=== PATIENT | male | born 1930 | race Caucasian/White ===

== ENCOUNTER → 2016-08-24 | Outpatient (CLI) | payer OTHER | LOC: FIMAGING 09:43 | PROVIDERS: ATTEND Internal Medicine Hematology & Oncology | DX: Z13.820 Encounter for screening for osteoporosis (principal); M85.80 Other specified disorders of bone density and structure, unspecified site; C90.00 Multiple myeloma not having achieved remission; Z96.641 Presence of right artificial hip joint ==

== ENCOUNTER → 2016-11-13 | Outpatient (CLI) | payer OTHER | LOC: FIMAGING 08:49 | PROVIDERS: ATTEND Internal Medicine Hematology & Oncology | DX: R05 Cough (principal); R53.83 Other fatigue; R91.8 Other nonspecific abnormal finding of lung field; Z85.79 Personal history of other malignant neoplasms of lymphoid, hematopoietic and related tissues ==

== ENCOUNTER 2018-04-18 15:18 | Inpatient (IN) | payer OTHER ==
--- NOTE | 2018-04-18 16:00 | EDPHY ---
H & P Stated Complaint: low SPO2, cough Time Seen by Provider: 04/18/18 15:59 HPI/ROS: HPI CHIEF COMPLAINT: Shortness of breath, cough. HISTORY OF PRESENT ILLNESS: 88-year-old male, presents emergency room shortness of breath. Reports cough progressively worse over the last 48 hr with duval sputum. Denies fever. Does complain of fatigue no chest pain. Went to his assistant project manager's office today noted to have an O2 sat of 77%. Referred to the ER. He arrives to the emergency room on 4 L nasal cannula. His O2 sat was 77% on room air. He is slightly tachypneic. He has crackles throughout his lung bilaterally. Past Medical History: Significant past medical history for multiple myeloma, osteoarthritis, AFib. On Coumadin. Past Surgical History: Hip surgery. Social History: Denies drugs alcohol tobacco. Family History: Noncontributory. ROS REVIEW OF SYSTEMS: 10 Systems were reviewed and negative with the exception of the elements mentioned in the history of present illness. Exam Constitutional nontoxic triage nursing summary reviewed, vital signs reviewed, awake/alert. Hypoxic 77%. Eyes normal conjunctivae and sclera, EOMI, PERRLA. HENT normal inspection, atraumatic, moist mucus membranes, no epistaxis, neck supple/ no meningismus, no raccoon eyes. Respiratory crackles bilaterally. Decreased breath sounds bilaterally. Cardiovascular rate normal, regular rhythm, no murmur, no edema, distal pulses normal. Gastrointestinal soft, non-tender, no rebound, no guarding, normal bowel sounds, no distension, no pulsatile mass. Genitourinary no CVA tenderness. Musculoskeletal no midline vertebral tenderness, full range of motion, no calf swelling, no tenderness of extremities, no meningismus, good pulses, neurovascularly intact. Skin pink, warm, & dry, no rash, skin atraumatic. Neurologic awake, alert and oriented x 3, AAOx3, moves all 4 extremities equally, motor intact, sensory intact, CN II-XII intact, normal cerebellar, normal vision, normal speech. Psychiatric normal mood/affect. Heme/Lymph/Immune no lymphadenopathy. Differential Diagnosis: Includes but is not limited to in a particular order pneumonia, viral syndrome, URI, CHF, ACS, PE Medical Decision Making: Plan for this patient IV establishment full quality assurance monitor chassis, chest x-ray, EKG, blood cultures, lactic, Re-evaluation: Given this patient's hypoxia, and clinical presentation the patient need to be admitted most likely for pneumonia. EKG interpretation by me on record in [employer] system. Impression time of EKG 1621, AFib rate of 84, similar morphology pattern as dated 07/17/2014. I do not appreciate acute ischemia. ED x-ray chest one view this shows bilateral lower lobe pneumonia. Worse on left than right. Given this patient's hypoxia, cough with duval productive sputum blood cultures have been obtained. IV Levaquin has been ordered. The patient need to be admitted to the hospital for hypoxia pneumonia. 1644: Plan for hospital admission for pneumonia bilateral lower lobe. IV Levaquin has been ordered. Blood work pending. Patient hemodynamically stable. Spoke with the hospitalist service Dr. Ugalde accepts. Source: Patient - Personal History Current Tetanus/Diphtheria Vaccine: Yes Current Tetanus Diphtheria and Acellular Pertussis (TDAP): Yes - Medical/Surgical History Hx Asthma: No Hx Chronic Respiratory Disease: No Hx Diabetes: No Hx Cardiac Disease: Yes Hx Renal Disease: No Hx Cirrhosis: No Hx Alcoholism: No Hx HIV/AIDS: No Hx Splenectomy or Spleen Trauma: No Other PMH: afib. Multiple Myloma. Hip Replacement. Osteoarthritis - Social History Smoking Status: Never smoked Constitutional: Initial Vital Signs Temperature (C) 38 C 04/18/18 15:32 Heart Rate 92 04/18/18 15:32 Respiratory Rate 20 04/18/18 15:32 Blood Pressure 111/63 04/18/18 15:32 O2 Sat (%) 90 L 04/18/18 15:32 O2 Delivery Mode Nasal Cannula O2 (L/minute) 3 Allergies/Adverse Reactions: mercury (elemental) [Mercury (Elemental)] Allergy (Verified 04/18/18 15:31) Sbbttsa-Ybi-Ubf Reductase Inhibitor Allergy (Verified 04/18/18 15:31) Other-Enter Comments Home Medications: Medication Instructions Recorded C,E,Zinc,Copper 11/Dshkf4r/Lut 1 each PO DAILY 01/03/16 [Ocuvite Adult 50 Plus Softgel] Lenalidomide [Revlimid] 5 mg PO DAILY 01/03/16 Warfarin Sodium [Coumadin] 3 mg PO MOWEFR 01/03/16 Herbals/Supplements -Info Only 1 ea PO DAILY 04/18/18 Multivitamins [Multivitamin (*)] 1 each PO DAILY 04/18/18 Warfarin Sodium [Coumadin] 6 mg PO SUTUTHSA 04/18/18 Medical Decision Making - Data Points Laboratory Results: Laboratory Results 04/18/18 16:19 04/18/18 16:19 Microbiology Results: MICROBIOLOGY 04/18/18 16:38 Nasal, Sinus - Anaerobic Tube/Swab Respiratory Panel (PCR) - Final Human Rhinovirus/Enterovirus Medications Given: Miscellaneous Medication (Lenalidomide [Revlimid]) 5 mg PO DAILY CORA Stop: 10/16/18 08:59 Last Admin: 04/19/18 09:58 Dose: 5 mg Discontinued Medications Levofloxacin/Dextrose (Levaquin 750 Mg (Premix)) 150 mls @ 100 mls/hr IV EDNOW ONE PRN Reason: Protocol Stop: 04/18/18 17:44 Last Admin: 04/18/18 16:23 Dose: 150 mls Sodium Chloride (Ns) 1,000 mls @ 0 mls/hr IV ONCE ONE PRN Reason: Wide Open Stop: 04/18/18 17:00 Last Admin: 04/18/18 17:23 Dose: 1,000 mls Point of Care Test Results: Chemistry 04/18/18 16:25 POC Troponin I 0.05 ng/mL ng/mL (0.00-0.08) Departure - Departure Disposition: [facility] Inpatient Acute Clinical Impression: Hypoxia Pneumonia Qualifiers: Pneumonia type: due to unspecified organism Laterality: bilateral Lung location : lower lobe of lung Qualified Code(s): J18.1 - Lobar pneumonia, unspecified organism Condition: Fair
[2018-04-18 16:37] LABS: PLATELET COUNT 97 10^3/uL (150-400)
[2018-04-18] MEDS ORDERED: ONDANSETRON 4 MG/2 ML VIAL IVP PRN (16:48)
[2018-04-18] MEDS ORDERED: ONDANSETRON DISINTEGRATING 4 MG TAB PO PRN (16:48)
[2018-04-18] MEDS ORDERED: ACETAMINOPHEN 325 MG TAB PO PRN (16:48)
[2018-04-18] MEDS ORDERED: NS 1,000 ML IV ONE (16:59)
[2018-04-18 17:01] LABS: INR 3.72 (0.83-1.16); PROTIME(PATIENT) 36.5 SEC (12.0-15.0)
--- NOTE | 2018-04-18 17:39 | PDGENHP ---
History and Physical - Chief Complaint SOB, lightheadedness - History of Present Illness 88 y/o male with history of atrial fibrillation, multiple myeloma, and osteoarthritis presents with decreased oxygen sats at 77% on RA. The patient reports feeling well on Sunday and visiting the [employer] in [place]. Afterwards leading to Sunday, he progressively became short of breath, lightheaded, and fatigued. His O2 sats at home was 84%. He denies N/V, fevers, chills, chest pains. He thought it was heart related so he f/u'ed with his occupational rehabilitation aide where CXR was performed and told he has pneumonia and go to ED. He has not been around anyone who was sick. His productive cough he has had for a couple of months, producing duval thick sputum and has been treating it with cough drops and Mucinex. Past Medical/Surgical History 1. Multiple Myeloma 2. Atrial Fibrillation (on Warfarin) 3. Osteoarthritis 4. MOHS Face basal cell carcinoma History Information - Allergies/Home Medication List Allergies/Adverse Reactions: mercury (elemental) [Mercury (Elemental)] Allergy (Verified 04/18/18 15:31) Pexjquc-Lwr-Xoz Reductase Inhibitor Allergy (Verified 04/18/18 15:31) Other-Enter Comments Home Medications: Ocuvite Softgel 01/03/16 [Last Taken Unknown] Revlimid 01/03/16 [Last Taken Unknown] Warfarin Sodium 01/03/16 [Last Taken Unknown] I have personally reviewed and updated: family history, medical history, social history, surgical history Past Medical History: See HPI List - Surgical History Additional surgical history: See HPI list - Family History Positive for: non-pertinent - Social History Smoking Status: Never smoked Alcohol Use: None Drug Use: None Additional social history: Son-in-law at bedside with pt. Pt lives alone at home with his dog. POA is his son, Joshua, who lives in [place]. Cell # is: [phone] Review of Systems Review of Systems: ROS: 10pt was reviewed & negative except for what was stated in HPI & below Constitutional: Reports: weakness, other (A couple of months with a productive cough) EENMT: Reports: no symptoms Cardiac: Reports: lightheadedness Respiratory: Reports: cough, shortness of breath Gastrointestinal: Reports: no symptoms Genitourinary: Reports: no symptoms Muscolosketal: Reports: no symptoms Skin: Reports: no symptoms Neurological: Reports: headache, tingling (Was told years ago he had carpal tunnel syndrome) Hematologic/Lymphatic: Reports: no symptoms Immunologic/Allergy: Reports: other (See allergy list) Physical Exam Physical Exam: Lab data and imaging reviewed Lactic Acid: 1.6 First troponin: 0.05 INR: 3.72 Respiratory Panel: Pending CMP: Pending CXR: Dense left lower lobe with air bronchospasms, chronic atherosclerotic calcification of the aorta. Possible cardiomegaly without failure EKG: ventricular 84 bmp, chronic a-fib. Temp Pulse Resp BP Pulse Ox 38 C 72 22 H 134/79 H 95 04/18/18 15:32 04/18/18 16:25 04/18/18 16:25 04/18/18 16:25 04/18/18 16:33 Constitutional: no apparent distress, appears nourished, not in pain Eyes: PERRL, anicteric sclera, EOMI Ears, Nose, Mouth, Throat: moist mucous membranes, hearing normal, ears appear normal, no oral mucosal ulcers Cardiovascular: no murmur, rub, or gallop, irregularly irregular, edema (Mild non-pitting pedal edema) Peripheral Pulses: 2+: dorsalis-pedis (R) (Radial 2+), dorsalis-pedis (L) ( Radial 2+) Respiratory: rhonchi (Bilateral lower lobes expiratory rhonchi; diminished inspiratory sounds) Gastrointestinal: normoactive bowel sounds, soft, non-tender abdomen, no palpable masses Genitourinary: no bladder fullness, no bladder tenderness Skin: warm, normal color, no rashes or abrasions, no fluctuance, no induration, No mottled Musculoskeletal: full muscle strength, no muscle tenderness, normal joint ROM, no joint effusions Neurologic: AAOx3, sensation intact bilaterally, CN II-XII Intact Psychiatric: interacting appropriately, not anxious, not encephalopathic, thought process linear Lymph, Heme, Immunologic: no cervical LAD, no supraclavicular LAD Lab Data & Imaging Review 04/18/18 16:19 04/18/18 16:19 WBC 4.67 10^3/uL (3.80-9.50) 04/18/18 16:19 RBC 3.70 10^6/uL (4.40-6.38) L 04/18/18 16:19 Hgb 12.4 g/dL (13.7-17.5) L 04/18/18 16:19 Hct 38.2 % (40.0-51.0) L 04/18/18 16:19 MCV 103.2 fL (81.5-99.8) H 04/18/18 16:19 MCH 33.5 pg (27.9-34.1) 04/18/18 16:19 MCHC 32.5 g/dL (32.4-36.7) 04/18/18 16:19 RDW 14.8 % (11.5-15.2) 04/18/18 16:19 Plt Count 97 10^3/uL (150-400) L 04/18/18 16:19 MPV 11.4 fL (8.7-11.7) 04/18/18 16:19 PT 36.5 SEC (12.0-15.0) H 04/18/18 16:19 INR 3.72 (0.83-1.16) H 04/18/18 16:19 APTT 63.0 SEC (23.0-38.0) H 04/18/18 16:19 VBG Lactic Acid 1.6 mmol/L (0.7-2.1) 04/18/18 16:15 POC Troponin I 0.05 ng/mL (0.00-0.08) 04/18/18 16:25 Nasal Influenza A PCR Cancelled 04/18/18 16:38 Nasal Influenza B PCR Cancelled 04/18/18 16:38 Assessment & Plan Plan: 88 y/o male with history of atrial fibrillation, multiple myeloma, and osteoarthritis presents with decreased oxygen sats at 77% on RA and for the past four days, has progressively become more fatigued, short of breath, and lightheaded to the point where he thought he would pass out. Suspected pneumonia to left lower lobe. 1. Acute hypoxic respiratory failure: differential diagnosis are CAP, PE, CHF, pleural effusion. PE unlikely consider he is on chronic warfarin and INR is 3.72. Dense left lower consolidation -suspect pneumonia: low-grade fever (38 degree C) and hypoxic. Close to meeting at least 2 SIRS criteria. Respirations 22, white count 4.67, lactate 1.6. -Cont Tele -Cycle one more trop -Blood culture pending -Respiratory panel pending -Sputum pending -IV antibiotics once BMP results (renal function) -IV fluids once BMP results (renal function) 2. Thrombocytopenia: Currently undergoing chemo treatment with Revlimid for multiple myeloma. Continue this medication as directed and monitor plts closely. 3. A-Fib: Chronic and on warfarin. Currently stable and has a loop recorder for monitoring. He reports taking his Coumadin today. -Hold coumadin for tonight -Pharmacy to dose, INR above therapeutic range (3.72) Diet: Regular VTE ppx: SCDs, Warfarin Code: DNR Dispo: Admit to inpatient
--- NOTE | 2018-04-18 23:01 | CPEKG ---
Test Reason : OPEN Blood Pressure : / mmHG Vent. Rate : 084 BPM Atrial Rate : 149 BPM P-R Int : 062 ms QRS Dur : 103 ms QT Int : 381 ms P-R-T Axes : 000 000 013 degrees QTc Int : 451 ms Atrial fibrillation Borderline repol abnormality, diffuse leads Confirmed by Ciro Yoo ([id number]) on 04/18/2018 11:01:14 PM Referred By: Confirmed By:Ciro Yoo
--- NOTE | 2018-04-18 23:31 | HOSPPROG ---
Hospitalist Progress Note Assessment/Plan: Pt seen and examined, chart reviewed. Discussed case with Aleja Quintana [employer]. See her H&P, agree with assessment and plan. AHRF - appears viral Indeterminate trop - query strain with respiratory illness, trend MM - low plts 2/2 tx, follow Objective: Vital Signs Temp Pulse Resp BP Pulse Ox 37.2 C 78 24 H 104/54 L 94 04/18/18 22:51 04/18/18 22:51 04/18/18 22:51 04/18/18 22:51 04/18/18 22:51 04/17/18 04/18/18 04/19/18 05:59 05:59 05:59 Intake Total 200 Output Total 126 Balance 74 PT 36.5 SEC (12.0-15.0) H 04/18/18 16:19 INR 3.72 (0.83-1.16) H 04/18/18 16:19 ICD10 Worksheet Patient Problems: Problems Problem Status Onset Hypoxia Acute Pneumonia Acute Syncope and collapse Acute Syncope due to orthostatic hypotension Acute
[2018-04-19 06:15] LABS: INR 4.9 (0.83-1.16); PROTIME(PATIENT) 45.1 SEC (12.0-15.0)
--- NOTE | 2018-04-19 08:33 | HOSPPROG ---
Hospitalist Progress Note Assessment/Plan: DIAGNOSES: * acute hypoxemic respiratory failure * acute bilateral pneumonia, human rhino virus identified on respiratory swab, bacterial infection not ruled out * immune suppression due to myeloma and treatment * excessive anticoagulation on Coumadin * acute thrombocytopenia, suspect due to viral illness * gradually progressive exertional incapacity over 6 months, uncertain etiology * abnormal EKG with lateral and posterior ST segment changes, indeterminate troponins; elevation of BNP * history of AFib His acute illness is obviously an infectious respiratory illness. However he does have a more chronic progressive exertional incapacity, and now has EKG change in high BNP. He does have a history of valvular heart disease. It is possible he is having worsening underlying structural heart disease or could even be developing ischemic disease as causes of his chronic symptoms PLANS: * Continue empiric antibiotics at this time * Respiratory care * Follow INR closely off anticoagulant at this time, watch for bleeding complications; resume Coumadin when INR therapeutic which may take a while due to use of antibiotic; follow platelets as well as his bleeding risk will increase more if they fall further * Repeat EKG * Review his most recent stress test and echocardiogram for timing and results, consider repeat studies at this time depending on what I find * DVT prophylaxis is with his Coumadin SUBJECTIVE: Patient feels about the same as yesterday although the oxygen is making him less lightheaded He does mention to me that he has had for the past 6 months a gradual decrease in his exertional capacity, where previously he would walk 5 miles at 3 mph and now is down to walking at best 3 miles at 1.7 mph, as he monitors this routinely. There has been no specific discomfort or dyspnea that he notices causing this and its etiology has not been assessed OBJECTIVE Vitals reviewed: Afebrile, remains tachypneic on 4 L oxygen, borderline low blood pressures Exam: alert oriented skin warm dry color ok resps not labored lungs obvious egophony and rales at the left base, milder changes at the very inferior right base heart regular abd soft nondistended nontender, bowel sounds present limbs warm, no edema iv site ok Laboratory data: INR increased to 4.9 today Platelets decreased to 80,000 today Repeat troponin remains indeterminate I reviewed his chest x-ray images which show obvious pneumonia infiltrates I reviewed his EKG from yesterday, and there is ST segment down sloping depression in lateral V leads and ST segment elevation in posterior leads. Objective: Vital Signs Temp Pulse Resp BP Pulse Ox 36.4 C 77 28 H 95/60 L 93 04/19/18 07:18 04/19/18 07:18 04/19/18 07:18 04/19/18 07:18 04/19/18 07:18 Microbiology 04/19/18 06:26 - Final Sputum, Expectorated Sputum Culture - Final Laboratory Results 04/19/18 04:11 04/18/18 04/19/18 04/20/18 06:59 06:59 06:59 Intake Total 200 Output Total 301 200 Balance -101 -200 PT 45.1 SEC (12.0-15.0) H 04/19/18 04:11 INR 4.90 (0.83-1.16) H 04/19/18 04:11 - Time Spent With Patient Time Spent with Patient: greater than 35 minutes Time Spent with Patient: Greater than 35 minutes spent on this patients care, greater than 50% of time spent counseling, educating, and coordinating care regarding the above mentioned plan. ICD10 Worksheet Patient Problems: Problems Problem Status Onset Syncope and collapse Acute Syncope due to orthostatic hypotension Acute Pneumonia Acute Hypoxia Acute
[2018-04-19] MEDS: Lenalidomide [Revlimid] 5 MG PO SCH (09:58)
--- NOTE | 2018-04-19 12:16 | PDMN ---
Medical Necessity Medical necessity: Pt meets IP criteria per & MCG M-282; est los >2 mn for eval/tx of acute bilateral pneumonia w/acute hypoxemic respiratory failure (O2 77% on RA); admit for further monitoring, IV abx & respiratory supportive care; comorbid advanced age, AFIB on AC, immunosuppression r/t multiple myeloma & tx, thrombocytopenia; per IP order 04/18/18
--- NOTE | 2018-04-19 12:34 | ASMTCMCOM ---
CM Note CM Note Notes: Reviewed chart, pt admitted to hospital for pnuemonia. He had an abnorma EKG so MD would like a cardiology consult. Pt lives alone with his dog, no therapies ordered. Anticipate he will dc home when medically stable. CM available for any changes. DC Plan: Independent Date Signed: 04/19/2018 12:33 PM Electronically Signed By:Janice Lagunas RN
--- NOTE | 2018-04-19 16:58 | ECHO ---
[email or web address] [address] [address] Main: [phone] Fax: [email or web address] Echocardiogram Name: ZACKARY HDEZ MR#: [id number] Study Date: 04/19/2018 Study Time: 09:26 AM Date of : 1930 Age: 88 year(s) Height: 241.3 cm (95 in.) Weight: 27.22 kg (60 lb.) BSA: 1.56 m2 Gender: Male Examination: Echo Indication: Shortness of breath Image Quality: Adequate Contrast: Requested by: Chaparrita Quintana BP: 95 mmHg/60 mmHg Heart Rate: Rhythm: Indication: Shortness of breath Procedure Staff [employer] Repairer: Roberta Mccracken RDCS Reading Physician: Dario Gomez MD Requesting Provider: Conclusions: Normal size left ventricle. Low normal left ventricular systolic function. EF is 51 %. There is subtle hypokinesis of the apex (2 chamber). Moderately dilated right ventricle. Mildly reduced RV function. The left atrium is severely dilated. The right atrium is severely dilated. The aortic valve is tri-leaflet. Moderate aortic cusp calcification is present. Moderate aortic valve regurgitation is present. Mild calcific aortic valve stenosis. Mean aortic valve gradient 10. The pulmonary artery pressure is moderately increased. Right ventricular systolic pressure measures 50mmHg. Severe Tricuspid Regurgitation . Mild pulmonic valve regurgitation is noted. The IVC is normal sized. Measurements: Chambers Valvular Assessment AV/MV Valvular Assessment TV/PV Normal Normal Normal Name Value Range Name Value Range Name Value Range Ao Priya (2D): 3.1 cm (1.4 cm-2.6 AV Vmax: 2.20 m/s (1 m/s-1.7 TR Vmax: 3.35 mm/s ( - ) cm) m/s) TR PGmax: 45 mmHg ( - ) IVSd (2D): 1.0 cm (0.6 cm-1.1 AV maxP mmHg ( - ) syst. PAP: 50 mmHg ( - ) cm) AV meanP mmHg ( - ) PV Vmax: 0.91 m/s (0.6 m/s-0.9 LVDd (2D): 4.3 cm (4.2 cm-5.9 ALYSA (VTI): 1.4 cm ( - ) m/s) cm) MV E Vmax: 1.11 m/s ( - ) PV PGmax: 3 mmHg ( - ) Patient: ZACKARY HDEZ Study Date: 04/19/2018 Page 1 of 3 09:26 AM LVDs (2D): 3.2 cm (2.1 cm-4 MV PHT: 0.059 s ( - ) cm) MVA (PHT): 3.7 s ( - ) LVPWd (2D): 1.0 cm (0.6 cm-1 cm) LVOTd 1.9 cm 1.9 cm mm LVEF (BP): 51 % (>=55 %) RVDd(2D): 4.6 cm (1.9 cm-3.8 cmmm) Continued Measurements: Chambers Valvular Assessment TV/PV Name Value Name Value LADs: 4.5 cm CVP (est.): 5 mmHg LADs Lon.4 cm LA Area: 24.1 cm2 LA Volume: 82 ml LA Volume Index: 52.6 ml/m2 RA Area: 30.1 cm2 Additional Vessels Name Value Ao Ascendin.8 cm Inferior Vena Cava: 1.6 cm Findings: Left Ventricle: Normal size left ventricle. No LV hypertrophy. Low normal left ventricular systolic function. EF is 51 %. Unable to assess diastolic dysfunction. There is subtle hypokinesis of the apex (2 chamber). Right Ventricle: Moderately dilated right ventricle. Mildly reduced RV function. Left Atrium: The left atrium is severely dilated. Right Atrium: The right atrium is severely dilated. Mitral Valve: The mitral valve is normal in appearance and function. Mild mitral valve leaflet calcification is present. Mild mitral annular calcification. Mild mitral valve regurgitation is present. No mitral stenosis is present. Aortic Valve: The aortic valve is tri-leaflet. Moderate aortic cusp calcification is present. Moderate aortic valve regurgitation is present. Mild calcific aortic valve stenosis. Mean aortic valve gradient 10. Tricuspid Valve: The tricuspid valve is normal in appearance and function. The pulmonary artery pressure is moderately increased. Right ventricular systolic pressure measures 50mmHg. Severe Tricuspid Regurgitation . Pulmonic Valve: The pulmonic valve is normal in appearance and function. Mild pulmonic valve regurgitation is noted. Aorta: The aorta is normal. Normal size aortic root measuring 3.1 cm. Normal size ascending aorta measuring 3.8 cm. IVC: The IVC is normal sized. Pericardium: No pericardial effusion. No echocardiographic evidence of hemodynamic compromise. No pleural effusion. Patient: ZACKARY HDEZ Study Date: 04/19/2018 Page 2 of 3 09:26 AM (No Signature Object) Patient: ZACKARY HDEZ Study Date: 04/19/2018 Page 3 of 3 09:26 AM [id number]
[2018-04-20 06:38] LABS: INR 3.61 (0.83-1.16); PROTIME(PATIENT) 35.7 SEC (12.0-15.0)
--- NOTE | 2018-04-20 07:29 | CPEKG ---
Test Reason : OPEN Blood Pressure : / mmHG Vent. Rate : 083 BPM Atrial Rate : 079 BPM P-R Int : 206 ms QRS Dur : 098 ms QT Int : 383 ms P-R-T Axes : 000 080 014 degrees QTc Int : 450 ms Atrial fibrillation Nonspecific ST T wave abnormality diffuse leads Confirmed by Chuck Rios ([id number]) on 04/20/2018 7:29:04 AM Referred By: Confirmed By:Chuck Rios
[2018-04-20] MEDS: Lenalidomide [Revlimid] 5 MG PO SCH (08:44)
--- NOTE | 2018-04-20 17:42 | HOSPPROG ---
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 if has MAIRA or unrecognized lung dz; chronic coumadin makes PE less likely but not untenable * echo findings do not suggest valvular or LV disease as cause, yet has severe biatrial enlargement despite good LV fxn * gait instability and high fall risk (uses walker at home) * indeterminate troponins, do not feel he is having any acute coronary syndrome * chronic AFib rate controlled and anticoagulated on Coumadin His acute illness is an infectious respiratory illness and should resolve with time His 6 mos of progressive decline in exertional capacity requires further w/u. His myeloma makes use of iodine contrast unattractive so angiography and CT angio should be very carefully considered, and reviewed with Dr Whittington and or a it solutions sales consultant. He has previous abnormal stress MPI study so repeating that would not likely be useful. I have reviewed this issues with dr Almodovar of cardiology. He feels that stress echo may be useful, and this could be done as outpt PLANS: * Continue empiric antibiotics at this time * Follow INR closely off anticoagulant at this time, watch for bleeding complications; resume Coumadin when INR therapeutic * Discharge to home with home O2 likely 04/21 if his balance/strength is good for use of home O2 and walker including stairs (son will be staying w him for around 2 weeks) * he should see either Dr Cobian or Scooby in next 2 weeks to consider stress echo or other eval of heart * should be referred to [facility], and his assessment should include both PFT and referral for sleep study for MAIRA, and consider whether testing for PE appropriate/how to do that w his myeloma * DVT prophylaxis is with his Coumadin SUBJECTIVE: Patient feels about the same as yesterday although the oxygen is making him less lightheaded Has been doing some ambulating in the hallway today and, eating well, no nausea vomiting no chills OBJECTIVE Vitals reviewed: Afebrile, remains tachypneic on 4 L oxygen, borderline low blood pressures Exam: alert oriented skin warm dry color ok resps not labored lungs obvious egophony and rales at the left base, milder changes at the very inferior right base heart regular abd soft nondistended nontender, bowel sounds present limbs warm, no edema iv site ok Laboratory data: INR remains elevated at 3.6 Echocardiogram shows evidence of PHTN 50, dilated RV, severe TR, moderate aortic regurgitation, mild mitral regurgitation, severe biatrial enlargement, good LV fxn Objective: Vital Signs Temp Pulse Resp BP Pulse Ox 36.3 C 75 20 101/52 L 90 L 04/20/18 16:00 04/20/18 16:00 04/20/18 16:00 04/20/18 16:00 04/20/18 16:00 Laboratory Results 04/19/18 04:11 04/19/18 04/20/18 04/21/18 06:59 06:59 06:59 Intake Total 200 500 Output Total 301 400 Balance -101 100 PT 35.7 SEC (12.0-15.0) H 04/20/18 04:40 INR 3.61 (0.83-1.16) H 04/20/18 04:40 - Time Spent With Patient Time Spent with Patient: greater than 35 minutes Time Spent with Patient: Greater than 35 minutes spent on this patients care, greater than 50% of time spent counseling, educating, and coordinating care regarding the above mentioned plan. ICD10 Worksheet Patient Problems: Problems Problem Status Onset Hypoxia Acute Pneumonia Acute Syncope and collapse Acute Syncope due to orthostatic hypotension Acute
[2018-04-21 05:28] LABS: INR 2.56 (0.83-1.16); PROTIME(PATIENT) 27.5 SEC (12.0-15.0)
[2018-04-21] MEDS: Lenalidomide [Revlimid] 5 MG PO SCH (07:38)
[2018-04-21 08:43] VITALS: BP 94/56
--- NOTE | 2018-04-21 09:19 | HOSPPROG ---
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 if has MAIRA or unrecognized lung dz; chronic coumadin makes PE less likely but not untenable * echo findings do not suggest valvular or LV disease as cause, yet has severe biatrial enlargement despite good LV fxn * gait instability and high fall risk (uses walker at home) * indeterminate troponins, do not feel he is having any acute coronary syndrome * chronic AFib rate controlled and anticoagulated on Coumadin His acute illness is an infectious respiratory illness and should resolve with time His 6 mos of progressive decline in exertional capacity requires further w/u. His myeloma makes use of iodine contrast unattractive so angiography and CT angio should be very carefully considered, and reviewed with Dr Whittington and or a appraiser. He has previous abnormal stress MPI study so repeating that would not likely be useful. I have reviewed this issues with dr Almodovar of cardiology. He feels that stress echo may be useful, and this could be done as outpt PLANS: * Continue empiric antibiotics at this time * Follow INR closely off anticoagulant at this time, watch for bleeding complications; resume Coumadin when INR therapeutic * Discharge to home with home O2 likely 04/21 if his balance/strength is good for use of home O2 and walker including stairs (son will be staying w him for around 2 weeks) * he should see either Dr Cobian or Scooby in next 2 weeks to consider stress echo or other eval of heart * should be referred to [facility], and his assessment should include both PFT and referral for sleep study for MAIRA, and consider whether testing for PE appropriate/how to do that w his myeloma * resume warfarin today * * home today > 30 minutes on dc Subjective: anxious for dc. stillw 02 requirement Objective: Vital Signs Temp Pulse Resp BP Pulse Ox 36.4 C 65 22 H 94/56 L 94 04/21/18 08:43 11/11/18 08:43 04/21/18 08:43 04/21/18 08:43 04/21/18 08:43 Laboratory Results 04/19/18 04:11 04/20/18 04/21/18 04/22/18 05:59 05:59 05:59 Intake Total 500 Output Total 400 500 Balance 100 -500 PT 27.5 SEC (12.0-15.0) H 04/21/18 04:15 INR 2.56 (0.83-1.16) H 04/21/18 04:15 - Physical Exam Constitutional: no apparent distress, appears nourished Eyes: PERRL, anicteric sclera Ears, Nose, Mouth, Throat: moist mucous membranes, hearing normal Cardiovascular: regular rate and rhythym, no murmur, rub, or gallop Respiratory: other (bibasilar crackles, no wheeze, good air movement) Gastrointestinal: normoactive bowel sounds, soft, non-tender abdomen Genitourinary: no bladder fullness, No francois in urethra Skin: warm, normal color Musculoskeletal: full muscle strength ICD10 Worksheet Patient Problems: Problems Problem Status Onset Hypoxia Acute Pneumonia Acute Syncope and collapse Acute Syncope due to orthostatic hypotension Acute
--- NOTE | 2018-04-21 09:21 | PDHOMEO2F ---
Home Oxygen Face to Face Home Orders: I certify that a physician or a nurse practitioner or physician's assistant laboratory director has had a [id number] encounter with this patient on the date of this order due to the diagnosis listed, which relates to the primary reason the patient requires home oxygen. Alternative treatments have been tried, or considered, and deemed ineffective. It is anticipated that supplemental oxygen will result in improvement with treatment. Home oxygen qualifying diagnosis: viral pneumonia SpO2 on room air (%): 84 Frequency of home oxygen needed: continuous Home oxygen liters per minute: 4 Home oxygen delivery device: mask, nasal cannula Concentrator: No E-tanks for mobility and back up: Yes If ordering portable O2, is the patient mobile in the home?: Yes I certify that, based on these findings, the home oxygen is medically necessary for this patient for the following length of time. Length of time home oxygen needed: 1 month
--- NOTE | 2018-04-21 10:19 | ASMTLACE ---
LACE Length of stay for Answers: 3 days current admission Acuity / Level of Answers: Yes Care: Did the patient have an inpatient admission? Comorbidities - select Answers: Other Notes: AFib; Multiple myeloma all that apply # of Emergency department Answers: 1-2 visits in the last 6 months Score: 8 Date Signed: 04/21/2018 10:18 AM Electronically Signed By:Janice Lagunas RN
--- NOTE | 2018-04-21 10:27 | ASMTCMCOM ---
CM Note CM Note Notes: Pt's son requested help with engaging someone to have goals of care discussion with him and his father. RN recommended outpt palliative consult. Referral sent to [facility] Plan: Allan thomas/ [facility] out[facility] Date Signed: 04/21/2018 10:26 AM Electronically Signed By:Janice Lagunas RN
--- NOTE | 2018-04-21 10:28 | PDIAF ---
- Diagnosis Diagnosis: viral pneumonia Code Status: Do Not Resuscitate - Medication Management Discharge Medications: electronically signed and located in the Home Medication List. - Orders Services needed: Home Care, Physical Therapy Home Care Face to Face: I certify that this patient was under my care and that I had the required [id number] encounter meeting the encounter requirements on the discharge day. My findings support the fact that the patient is homebound as defined in Home Care Face to Face Continued: CMS Chapter 7 Medicare Benefits Manual 30.1.1 , The condition of the patient is such that there exists a normal inability to leave home and consequently, leaving home would require a considerable and taxing effort. Isolation Type: Chemotherapy Isolation, Droplet Isolation - Follow Up Care Current Providers and Referrals: Andrew Cobian MD [Primary Care Provider] - As per Instructions
--- NOTE | 2018-04-21 10:59 | PDHOMEO2F ---
Home Oxygen Face to Face Home Orders: I certify that a physician or a nurse practitioner or physician's human resources benefits assistant has had a pitg-zi-mano encounter with this patient on the date of this order due to the diagnosis listed, which relates to the primary reason the patient requires home oxygen. Alternative treatments have been tried, or considered, and deemed ineffective. It is anticipated that supplemental oxygen will result in improvement with treatment. Home oxygen qualifying diagnosis: viral pneumonia SpO2 on room air (%): 84 Frequency of home oxygen needed: continuous Home oxygen liters per minute: 4 Home oxygen delivery device: nasal cannula Concentrator: Yes E-tanks for mobility and back up: Yes If ordering portable O2, is the patient mobile in the home?: Yes I certify that, based on these findings, the home oxygen is medically necessary for this patient for the following length of time. Length of time home oxygen needed: 1 month
[2018-04-21] MEDS ORDERED: PNEUMOC 13-VAL CONJ-DIP CRM/PF 0.5 ML SYR (PREVNAR 13) IM ONE (11:03)
--- NOTE | 2018-04-21 12:38 | ASMTCMCOM ---
CM Note CM Note Notes: Spoke w/physical therapist, she is recommending homecare and pt is amenable. List given and they would like referral sent to [facility], and they can accept. DC Plan: Home care/ [facility] + [facility] Palliative Date Signed: 04/21/2018 12:37 PM Electronically Signed By:Janice Lagunas RN
--- NOTE | 2018-04-21 15:06 | ASMTDCNOTE ---
Case Management Discharge Discharge Order Complete? Answers: Yes Patient to Obtain Answers: via Family Medications Transportation Arranged Answers: Family/Friends Faxed Final Orders Answers: Yes Family Notified Answers: Yes Discharge Comments Notes: D/w MD, final orders faxed. Received call from [facility], in fact they cannot accept pt's ins. [facility] and pt was [facility]. Date Signed: 04/21/2018 03:05 PM Electronically Signed By:Janice Lagunas RN
--- NOTE | 2018-04-21 15:11 | PDIAF ---
- Diagnosis Diagnosis: viral pneumonia Code Status: Do Not Resuscitate - Medication Management Discharge Medications: electronically signed and located in the Home Medication List. - Orders Services needed: Home Care, Registered Nurse, Physical Therapy Home Care Face to Face: I certify that this patient was under my care and that I had the required [id number] encounter meeting the encounter requirements on the discharge day. My findings support the fact that the patient is homebound as defined in Home Care Face to Face Continued: CMS Chapter 7 Medicare Benefits Manual 30.1.1 , The condition of the patient is such that there exists a normal inability to leave home and consequently, leaving home would require a considerable and taxing effort. Isolation Type: Chemotherapy Isolation, Droplet Isolation - Follow Up Care Current Providers and Referrals: Andrew Cobian MD [Primary Care Provider] - As per Instructions
== END 2018-04-21 13:20 | disposition home health service (06) | DRG 193 ==
LOC: F3E 17:39
PROVIDERS: ADMIT Hospitalist; ATTEND Hospitalist
DX: J12.89 Other viral pneumonia (principal); J96.01 Acute respiratory failure with hypoxia; C90.00 Multiple myeloma not having achieved remission; D69.6 Thrombocytopenia, unspecified; I48.2 Chronic atrial fibrillation; Z79.01 Long term (current) use of anticoagulants
CPT/HCPCS: 84484-PO; 93005-PO; 96365; 97116-GP; 97162-GP; G8978-GP-CK; G8979-GP-CI; J1956

== ENCOUNTER → 2018-04-18 | Outpatient (CLI) | payer OTHER | LOC: BHLMT 14:30 | PROVIDERS: ATTEND Internal Medicine Cardiovascular Disease | DX: I48.91 Unspecified atrial fibrillation (principal); I27.20 Pulmonary hypertension, unspecified; I25.10 Atherosclerotic heart disease of native coronary artery without angina pectoris; R06.09 Other forms of dyspnea | CPT/HCPCS: 93005-PO ==

== ENCOUNTER 2018-09-04 07:52 | Day surgery (SDC) | payer OTHER ==
[2018-09-04] MEDS ORDERED: DIAZEPAM 5 MG TAB PO ONE (07:55)
[2018-09-04] MEDS ORDERED: BACITRACIN IRRIGATION/NS 50,000 UNITS/1,000 ML BTL IRR ONE (07:55)
[2018-09-04] MEDS ORDERED: diphenhydrAMINE 25 MG CAP PO ONE (07:55)
[2018-09-04] MEDS ORDERED: NS 1,000 ML IV ONE (07:55)
[2018-09-04] MEDS ORDERED: ceFAZolin 2 GM/DEXTROSE 100 ML IV ONE (07:55)
--- NOTE | 2018-09-04 08:24 | PDHPUP ---
History & Physical Update H&P update statement: This history and physical update is based on an assessment of the patient which was completed after admission or registration (within 24 hours), but prior to the surgery/procedure. H&P update: H&P reviewed & patient examined, no change in patient's condition since H&P completed
--- NOTE | 2018-09-04 08:25 | PDPROPOC ---
Sedation Plan of Care Sedation Plan of Care: vital signs stable, mental status noted, patient educated of risks, benefits, alternatives, patient can tolerate sedation ASA Classification: ASA 2 Planned drugs: fentanyl, midazolam Mallampati Score: Class 1 Mallampati Reference Image: Patient passed 3-3-2 rule?: Yes
[2018-09-04 08:31] LABS: PLATELET COUNT 151 10^3/uL (150-400)
[2018-09-04 08:53] LABS: INR 1.08 (0.83-1.16); PROTIME(PATIENT) 13.6 SEC (12.0-15.0)
[2018-09-04] MEDS ORDERED: MIDAZOLAM 2 MG/2 ML VIAL ONE (09:25)
[2018-09-04] MEDS ORDERED: IOPAMIDOL (ISOVUE-300) 50 ML VIAL ONE (09:25)
[2018-09-04] MEDS ORDERED: fentaNYL 100 MCG/2 ML INJ ONE (09:25)
[2018-09-04] MEDS ORDERED: LIDOCAINE 1% 300 MG/30 ML SDV ONE (09:25)
[2018-09-04] MEDS ORDERED: LIDO/EPI 1% **for epidural** 30 ML SDV ONE (09:26)
[2018-09-04] MEDS ORDERED: BUPIVACAINE 0.5% 30 ML SDV ONE (09:26)
[2018-09-04] MEDS ORDERED: TEARS/DEXTRAN 70/HYPROMELLOSE 15 ML OPHT.BTL EACHEYE PRN (10:33)
--- NOTE | 2018-09-04 10:37 | PDCTREPORT ---
Cardiothoracic Procedure Rpt Cardiothoracic Procedure Report: Procedure: Implantation of a single-chamber permanent pacemaker, removal of implanted loop recorder. Indications: Recurrent syncope with documented pauses. After obtaining informed consent patient brought to cardiac catheterization lab in the fasting state. Left subclavian fossa was sterilely prepped and draped. Subclavian venogram was performed. Using a 10 blade an incision was made below the clavicle. Using combination of sharp and blunt dissection pacemaker pocket was created. Bacitracin soaked sponge was placed in the pocket. Using 18 gauge percutaneous needle subclavian vein on the left was entered. Guidewire advanced into the right heart. Using a 7 Welsh safety sheath lead was placed in the RV apex. Sheath was torn away. Appropriate sensitivities and thresholds were confirmed. The lead was secured to the fascia using 0 Ethibond x2. Bacitracin soaked sponge was removed. The generator was delivered to the field and attached to the lead. Set screws were tightened per industry standards. The entire system was coiled into the pocket. The loop recorder site was anesthetized with 2% xylocaine. Stab wound was made. The loop recorder was removed using blunt dissection. The loop recorder site was closed with a staple. Pacemaker pocket was closed using a three-layer closure. Pressure dressings applied the patient is taken to recovery for continued care. Chest x-ray pending. Conclusions: Successful implantation of a single-chamber permanent pacemaker Successful removal of loop recorder. Device: Edora 8 [id number] SN [id number] Ventricular lead: Solia [id number] sn [id number] Right ventricular sensing was 10 mV. Impedance was 697 Ohms. Capture was at 0.6 volts with a pulse with a 0.4 milliseconds. Patient Problems: Problems Problem Status Onset Chronic Disease Mgmt/Transitional Care Acute Hypoxia Acute Pneumonia Acute Syncope and collapse Acute Syncope due to orthostatic hypotension Acute
[2018-09-04] MEDS ORDERED: NON-FORMULARY NEW DRUG (Warfarin Sodium [Coumadin] 6 MG) PO SCH (10:45)
[2018-09-05] MEDS ORDERED: VITAMIN B COMPLEX 1 EA CAP/TAB PO SCH (09:00)
[2018-09-05] MEDS ORDERED: [UNRECOGNIZED DRUG - MIXTURE] PO SCH (09:00)
[2018-09-05] MEDS ORDERED: CYANO/VITAMIN B12 1000 MCG TAB PO SCH (09:00)
[2018-09-05] MEDS ORDERED: MULTIVITAMINS 1 EACH TAB PO SCH (09:00)
[2018-09-05] MEDS ORDERED: DOCUSATE SODIUM 100 MG CAP PO SCH (09:00)
[2018-09-05] MEDS ORDERED: LENALIDOMIDE 5 MG PO SCH (09:00)
[2018-09-05] MEDS ORDERED: CALCIUM CARBONATE 500 MG CHEWABLE TAB PO SCH (09:00)
--- NOTE | 2018-09-05 10:29 | CPEKG ---
Test Reason : OPEN Blood Pressure : / mmHG Vent. Rate : 077 BPM Atrial Rate : 000 BPM P-R Int : 071 ms QRS Dur : 091 ms QT Int : 406 ms P-R-T Axes : 000 089 000 degrees QTc Int : 460 ms Atrial fibrillation Borderline right axis deviation Borderline T abnormalities, inferior leads Confirmed by Peewee Petersen ([id number]) on 09/05/2018 10:28:45 AM Referred By: CARLO BOOTHE Confirmed By:Peewee Petersen
--- NOTE | 2018-09-05 11:18 | CPEKG ---
Test Reason : OPEN Blood Pressure : / mmHG Vent. Rate : 070 BPM Atrial Rate : 092 BPM P-R Int : 259 ms QRS Dur : 136 ms QT Int : 441 ms P-R-T Axes : 000 -75 099 degrees QTc Int : 476 ms Afib/flutter and ventricular-paced rhythm V pacing has replaced atrial fibrillation noted on prior Confirmed by Peewee Petersen ([id number]) on 09/05/2018 11:17:43 AM Referred By: CARLO BOOTHE Confirmed By:Peewee Petersen
[2018-09-06] MEDS ORDERED: WARFARIN SODIUM 3 MG PO SCH (10:33)
== END 2018-09-04 17:41 | disposition home or self-care (01) ==
LOC: FCATH 07:52 → F2W 11:07 → UNDOADMOB 11:07 → FCATH 17:41
PROVIDERS: ATTEND Internal Medicine Interventional Cardiology
PROC: 0JH604Z Insertion of Pacemaker, Single Chamber into Chest Subcutaneous Tissue and Fascia, Open Approach (ICD-10-PCS; principal; 2018-09-04)
PROC: 02HK3JZ Insertion of Pacemaker Lead into Right Ventricle, Percutaneous Approach (ICD-10-PCS; principal; 2018-09-04)
PROC: 0JPT02Z Removal of Monitoring Device from Trunk Subcutaneous Tissue and Fascia, Open Approach (ICD-10-PCS; principal; 2018-09-04)
DX: R55 Syncope and collapse (principal); I49.5 Sick sinus syndrome; I48.91 Unspecified atrial fibrillation; R53.83 Other fatigue; R94.39 Abnormal result of other cardiovascular function study; I25.10 Atherosclerotic heart disease of native coronary artery without angina pectoris; K21.9 Gastro-esophageal reflux disease without esophagitis; E78.5 Hyperlipidemia, unspecified; I34.0 Nonrheumatic mitral (valve) insufficiency; I27.20 Pulmonary hypertension, unspecified; I36.1 Nonrheumatic tricuspid (valve) insufficiency; Z82.49 Family history of ischemic heart disease and other diseases of the circulatory system; Z96.641 Presence of right artificial hip joint
CPT/HCPCS: C1786; C1898; J0690; J2250; J3010; Q9967

== ENCOUNTER → 2018-10-02 | Outpatient (CLI) | payer OTHER | LOC: CIMAGING 09:03 | PROVIDERS: ATTEND Internal Medicine | DX: M17.0 Bilateral primary osteoarthritis of knee (principal); I77.89 Other specified disorders of arteries and arterioles | CPT/HCPCS: 73565-PO ==

== ENCOUNTER 2018-11-05 10:03 | Emergency (ER) | payer OTHER ==
[2018-11-05 10:52] LABS: PLATELET COUNT 157 10^3/uL (150-400)
[2018-11-05] MEDS ORDERED: NS 1,000 ML IV ONE (11:04)
--- NOTE | 2018-11-05 11:12 | EDPHY ---
H & P Stated Complaint: cough, hypoxic Time Seen by Provider: 11/05/18 10:35 HPI/ROS: CHIEF COMPLAINT: Cough, congestion, low oxygen HISTORY OF PRESENT ILLNESS: This is an 88-year-old gentleman with history of multiple myeloma as well as atrial fibrillation, and pacemaker placement, on Coumadin, who presents reporting that over the last 10 days he has had a cough, some congestion, and noticed that he has had increasing O2 requirements. Patient is not O2 dependent but does have a pulse oximeter at his house. He returned from [facility] 10 days ago. He has been noticing his O2 saturations have been ranging from 88-86%. Reports a fever of 100 last night. No significant chest pain. Mild shortness of breath with exertion. He went to see his oncologist at [facility] today who noted when he was hypoxic and referred him to the emergency department. No nausea or vomiting. No urinary complaints. No significant headache. REVIEW OF SYSTEMS: A comprehensive 10 system review of systems was reviewed and is otherwise negative aside from elements mentioned in the history of present illness and medical decision making. PAST MEDICAL HISTORY: Multiple myeloma, atrial fibrillation, pacemaker placed recently. SOCIAL HISTORY: Lives independently. Patient is quite concerned regarding the fact that tomorrow he receives his every 21 days delivery of Revlimid. He reports that this chemotherapeutic agent cannot be left on his porch, or accepted by any other proxy, and if he does not except tomorrow, he will not have the medication for the next 21 days. VITAL SIGNS Reviewed by me. 97/50, 94 heart rate, afebrile, 86% on room air, respiratory rate 24 GENERAL: Well-developed, well-nourished, elderly male, no obvious respiratory distress. HEENT: Atraumatic. Eyes: No icterus, no injection. Mouth: Dry lips, slightly dry mucous membranes. No erythema or lesions. Neck: supple with no adenopathy. LUNGS: Coarse breath sounds throughout, occasional rhonchi and bronchial breath sounds auscultated especially at left base. CARDIAC: Irregularly irregular, systolic murmur. ABDOMEN: Soft, nontender, nondistended, bowel sounds normal. BACK: No CVA tenderness. EXTREMITIES: No trauma. No edema. Range of motion is normal throughout. NEURO: Alert and oriented, grossly nonfocal. SKIN: Warm and dry, no rash. PSYCHIATRIC: Normal mentation, no agitation. - Personal History Current Tetanus/Diphtheria Vaccine: Yes Current Tetanus Diphtheria and Acellular Pertussis (TDAP): Yes - Medical/Surgical History Hx Asthma: No Hx Chronic Respiratory Disease: No Hx Diabetes: No Hx Cardiac Disease: Yes Hx Renal Disease: No Hx Cirrhosis: No Hx Alcoholism: No Hx HIV/AIDS: No Hx Splenectomy or Spleen Trauma: No Other PMH: afib, PPM, PNA. Multiple Myloma. Hip Replacement. Osteoarthritis - Social History Smoking Status: Never smoked Constitutional: Initial Vital Signs Temperature (C) 37 C 11/05/18 10:12 Heart Rate 93 11/05/18 10:12 Respiratory Rate 24 H 11/05/18 10:12 Blood Pressure 97/57 L 11/05/18 10:12 O2 Sat (%) 86 L 11/05/18 10:12 O2 Delivery Mode Nasal Cannula O2 (L/minute) 2 Allergies/Adverse Reactions: mercury (elemental) [Mercury (Elemental)] Allergy (Verified 11/05/18 10:10) Iryoani-Sdz-Lir Reductase Inhibitor Allergy (Verified 11/05/18 10:10) Other-Enter Comments Home Medications: Medication Instructions Recorded Lenalidomide [Revlimid] 5 mg PO DAILY 01/03/16 Multivitamins [Multivitamin (*)] 1 each PO DAILY 04/18/18 Calcium Carbonate [Tums 500MG (*)] 500 mg PO BID PRN 08/28/18 Cyanocobalamin [Vitamin B12 (*)] 1,000 mcg PO DAILY 08/28/18 Docusate Sodium [Colace 100 MG (*)] 100 mg PO DAILY PRN 08/28/18 Vitamin B Complex [Vitamin B 1 each PO DAILY 08/28/18 Complex (OTC)] Acetaminophen [Tylenol 325mg (*)] 325 mg PO Q6 PRN 11/05/18 Albuterol [Proventil Inhaler HFA 1 - 2 puffs IH Q4H PRN 11/05/18 (*)] C/E/Zn/Cu/OM3/DHA/EPA/LUT/ZEAX 1 each PO DAILY 11/05/18 [Preservision Areds 2 Softgel] EPINEPHrine [Epipen 0.3 MG] 0.3 mg IM AD 11/05/18 Ergocalciferol [Vitamin D2 (*)] 50,000 unit PO TU 11/05/18 Fludrocortisone Acetate [Florinef 0.1 mg PO DAILY 11/05/18 0.1 MG (RX)] Herbals/Supplements -Info Only 1 ea PO DAILY 11/05/18 Vitamin B Complex [Vitamin B 1 each PO DAILY 11/05/18 Complex (OTC)] Warfarin Sodium [Coumadin 3MG (*)] 6 mg PO DAILY 11/05/18 levOFLOXACIN [levAQUIN (*)] 750 mg PO DAILY #10 tab 11/05/18 Medical Decision Making - Diagnostics Imaging Results: Imaging Impressions Chest X-Ray 11/05/18 10:24 Impression: 1. Mild increase in density of area of chronic atelectasis or scarring left lower lobe. Consider superimposed infiltrate/pneumonia. ED Course/Re-evaluation: 88-year-old male presents with hypoxemia, congestion, cough, and possible pneumonia. Chest x-ray does demonstrate mild increase in density of the atelectasis versus scarring at the left lower lobe. Normal white count, normal chemistries, normal lactic acid. Patient received ceftriaxone and azithromycin IV. Plan is to admit the patient to the hospital for pneumonia and O2 requirements. Sepsis Evaluation Note: The patient presents to the ED with potential infection identified as pneumonia. The patient did have evidence of sepsis: heart rate greater than 90 , respiratory rate greater than 20. Patient did not have evidence of severe sepsis (lactic acid greater than 2, INR greater than 1.5, platelets less than 100,000, bilirubin greater than 2, creatinine greater than 2, systolic blood pressure less than 90 or MAP less than 65, or the need for intubation or positive pressure ventilation). After the patient's evaluation in the emergency department, he declines admission to the hospital. He is concerned that he does not have his Revlimid and cannot give has 21 day supply unless he is home tomorrow. He is also concerned that the hospital will not be able to provide Revlimid tonight. Case management was involved at this point. We attempted to provide the patient with home O2, however, due to insurance issues, only a primary care physician can order home 02 for his diagnosis of pneumonia. We contacted the patient's primary care physician Dr. Theodore. Dr. Theodore's office will see the patient at 3:30 p.m. today, write the order for home O2, and the patient will proceed home. Patient was given a prescription for levofloxacin 750 mg by mouth once a day for 10 days. He was discharged with oxygen to use while he is proceeding to Dr. Theodore's office. Patient understood that he was leaving against my medical advice as I believe is much safer for the patient to be admitted to the hospital until his O2 requirement has cleared. Differential Diagnosis: Differential diagnosis for the patient's shortness of breath was considered including but not limited to pulmonary infectious processes, COPD exacerbation, pulmonary emboli, pulmonary edema, congestive heart failure, and cardiac causes. - Data Points Laboratory Results: Laboratory Results 11/05/18 10:23 11/05/18 10:23 11/05/18 11/05/18 11/05/18 11:21 10:23 10:23 WBC RBC Hgb Hct MCV MCH MCHC RDW Plt Count MPV Neut % (Auto) Lymph % (Auto) Lumpkin % (Auto) Eos % (Auto) Baso % (Auto) Nucleat RBC Rel Count Absolute Neuts (auto) Absolute Lymphs (auto) Absolute Monos (auto) Absolute Eos (auto) Absolute Basos (auto) Absolute Nucleated RBC Immature Gran % Immature Gran # PT INR APTT D-Dimer VBG Lactic Acid 1.1 mmol/L mmol/L (0.7-2.1) Sodium Potassium Chloride Carbon Dioxide Anion Gap BUN Creatinine Estimated GFR Glucose Calcium Total Bilirubin 0.7 mg/dL mg/dL (0.1-1.4) Procalcitonin 0.03 ng/mL ng/mL (0.02-0.10) 11/05/18 11/05/18 11/05/18 10:23 10:23 10:23 WBC 6.78 10^3/uL 10^3/uL (3.80-9.50) RBC 3.34 10^6/uL L 10^6/uL (4.40-6.38) Hgb 11.6 g/dL L g/dL (13.7-17.5) Hct 35.7 % L % (40.0-51.0) MCV 106.9 fL H fL (81.5-99.8) MCH 34.7 pg H pg (27.9-34.1) MCHC 32.5 g/dL g/dL (32.4-36.7) RDW 14.9 % % (11.5-15.2) Plt Count 157 10^3/uL 10^3/uL (150-400) MPV 10.7 fL fL (8.7-11.7) Neut % (Auto) 69.3 % % (39.3-74.2) Lymph % (Auto) 15.3 % % (15.0-45.0) Lumpkin % (Auto) 11.8 % % (4.5-13.0) Eos % (Auto) 2.8 % % (0.6-7.6) Baso % (Auto) 0.4 % % (0.3-1.7) Nucleat RBC Rel Count 0.0 % % (0.0-0.2) Absolute Neuts (auto) 4.69 10^3/uL 10^3/uL (1.70-6.50) Absolute Lymphs (auto) 1.04 10^3/uL 10^3/uL (1.00-3.00) Absolute Monos (auto) 0.80 10^3/uL 10^3/uL (0.30-0.80) Absolute Eos (auto) 0.19 10^3/uL 10^3/uL (0.03-0.40) Absolute Basos (auto) 0.03 10^3/uL 10^3/uL (0.02-0.10) Absolute Nucleated RBC 0.00 10^3/uL 10^3/uL (0-0.01) Immature Gran % 0.4 % % (0.0-1.1) Immature Gran # 0.03 10^3/uL 10^3/uL (0.00-0.10) PT 35.2 SEC H SEC (12.0-15.0) INR 3.76 H (0.83-1.16) APTT 54.1 SEC H SEC (23.0-38.0) D-Dimer 0.35 ug/mLFEU ug/mLFEU (0.00-0.50) VBG Lactic Acid Sodium 138 mEq/L mEq/L (135-145) Potassium 4.1 mEq/L mEq/L (3.5-5.2) Chloride 105 mEq/L mEq/L (97-110) Carbon Dioxide 25 mEq/l mEq/l (22-31) Anion Gap 8 mEq/L mEq/L (6-14) BUN 16 mg/dL mg/dL (7-23) Creatinine 0.8 mg/dL mg/dL (0.7-1.3) Estimated GFR > 60 Glucose 112 mg/dL H mg/dL (70-100) Calcium 8.0 mg/dL L mg/dL (8.5-10.4) Total Bilirubin Procalcitonin Medications Given: Azithromycin 500 mg/ Sodium (Chloride) 255 mls @ 255 mls/hr IV DAILY CORA PRN Reason: Protocol Stop: 12/05/18 11:44 Last Admin: 11/05/18 11:57 Dose: 255 mls Discontinued Medications Sodium Chloride (Ns) 1,000 mls @ 0 mls/hr IV ONCE ONE; Wide Open PRN Reason: Protocol Stop: 11/05/18 11:05 Last Admin: 11/05/18 11:25 Dose: 1,000 mls Departure - Departure Disposition: Home, Routine, Self-Care Clinical Impression: Hypoxia, Left against medical advice Pneumonia Qualifiers: Pneumonia type: due to unspecified organism Laterality: left Lung location: lower lobe of lung Qualified Code(s): J18.1 - Lobar pneumonia, unspecified organism Condition: Good
[2018-11-05 11:23] LABS: INR 3.76 (0.83-1.16); PROTIME(PATIENT) 35.2 SEC (12.0-15.0)
[2018-11-05] MEDS ORDERED: AZITHROMYCIN IV 500 MG in NS 250 ML IV SCH (11:45)
[2018-11-05 13:21] VITALS: BP 114/71
--- NOTE | 2018-11-05 14:52 | CPEKG ---
Test Reason : OPEN Blood Pressure : / mmHG Vent. Rate : 078 BPM Atrial Rate : 128 BPM P-R Int : 152 ms QRS Dur : 136 ms QT Int : 422 ms P-R-T Axes : 000 -76 092 degrees QTc Int : 481 ms Afib/flutter and ventricular-paced rhythm Confirmed by Aleja Morgan ([id number]) on 11/05/2018 2:52:05 PM Referred By: Aleja Morgan Confirmed By:Aleja Morgan
--- NOTE | 2018-11-05 16:38 | ASMTCMCOM ---
CM Note CM Note Notes: Pt presented to the ED through triage after he was found to be hypoxic at his appt at [facility]. CM requested to assist pt w/setting up home oxygen. Pt wishes to not be admitted and discharge home w/O2 so he can be present tomorrow when his chemo medication, Revlimid, gets delivered (& only he can sign to receive them). Pt lives alone with his dog. Pt has a daughter in the local area but does not want to reach out to her at this time "because she is busy with her 3 young boys." Pt was admitted back in 04/2018 for PNA and discharged home w/[facility] and [facility] providing home oxygen; and [facility] to follow. Pt states he discontinued his home oxygen in May because he felt he didn't need it anymore. Pt states he would like to see if [facility] can provide his O2 again. CM called [facility] and spoke w/Magdalena. Pt's insurance ([employer] PPO and Medicare OP) and acute (not chronic) diagnosis (PNA, hypoxia) requires that his PCP complete the [id number] and initiate home oxygen orders, and until then the pt would have to pay out of pocket ($115/mo for home concentrator + $22/mon for portable tank). Pt states he recently has primarily been seeing Dr Whittington at [facility] but his PCP is Dr Taz Theodore at [facility] in [place]. CM reached out to Shefali You RN Mechanical Supervisor for [employer] (reached at [phone] on T,R,F) and she was able to get pt an appt today at 3pm. Pt agreeable to this plan. Shefali and Magdalena thomas/[facility] have been connected and are working on getting pt set up w/HC O2 today. Shefali informed CM that ED visit info does not need to be faxed to them at this time as they are able to view it through [facility]. CM also discussed w/the pt the possible need for skilled and non-skilled HC assistance; pt states he is open to this idea while he recovers from PNA. Pt encouraged to discuss this with his PCP, daughter and son (who lives in [place]). Pt had driven himself to [facility] today so an orthopedic technician assisted the pt to his vehicle via wheelchair. Pt to drive himself to his appt w/Dr Theodore at 3pm. CM available for further assistance if needed. Date Signed: 11/05/2018 04:37 PM Electronically Signed By:Lisa Arango RN
== END 2018-11-05 13:20 | disposition home or self-care (01) ==
LOC: UNDOADMOB 11:49
DX: J18.1 Lobar pneumonia, unspecified organism (principal); R09.02 Hypoxemia; C90.00 Multiple myeloma not having achieved remission; I48.91 Unspecified atrial fibrillation; Z95.0 Presence of cardiac pacemaker; Z79.01 Long term (current) use of anticoagulants; Z53.29 Procedure and treatment not carried out because of patient's decision for other reasons
CPT/HCPCS: 71046; 93005; 96361; 96365; 99285; J0456